=== PATIENT | female | born 1955 | race Caucasian/White ===

== ENCOUNTER → 2024-08-29 | Outpatient (CLI) | payer MEDICARE, BC, SELFPAY ==
--- NOTE | 2024-08-29 16:10 | BD_ITS ---
PROCEDURE: DEXA BONE DENSITY STUDY REASON FOR EXAM: Osteoporosis screening. Postmenopausal TECHNIQUE: DEXA scan of the lumbar spine and both hips. COMPARISON: None available. FINDINGS: Bone mineral density and T-scores: Lumbar spine: Bone mineral density 1.043 g per sq cm and T-score of 0.0. Left hip: Left femoral neck bone mineral density 0.650 and T-score of -1.8. Total left hip bone mineral density 0.943 g per sq cm and T-score of 0.0. Right hip: Right femoral neck bone mineral density 0.696 g per sq cm and T-score of -1.4. Total right hip bone mineral density 0.944 g per sq cm and T-score of 0.0. FRAX Score: Major osteoporotic score 9.2. Hip fracture score 1.2 The T-scores are also available for review on the [facility] PACS or by accessing the [facility] electronic medical record. BD/Dexa Bone Density Study IMPRESSION: Osteopenia. Reading Location: [place]
--- NOTE | 2024-08-29 16:30 | BI_ITS ---
EXAM: SCRN MAMM (CAD)W/KULWINDER BILAT 08/29/2024 CLINICAL HISTORY: F, Age 69 y/o , SCRN MAMM (CAD)W/KULWINDER BILAT. There is no family history of breast cancer. TECHNIQUE: Bilateral screening digital breast tomosynthesis with 2D and 3D images. Computer aided detection. COMPARISON: Baseline, no priors. FINDINGS: TISSUE DENSITY: The breast tissue is almost entirely fatty. Bilateral Breast Mammographic Findings: No significant masses, calcifications or other abnormalities are identified. BI/SCRN MAMM (CAD)W/KULWINDER BILAT IMPRESSION: There is no mammographic evidence of malignancy. OVERALL FINAL ASSESSMENT: BIRADS 1 NEGATIVE. RECOMMENDATION: Routine annual follow-up in 1 Year A letter with findings and recommendations will be mailed to the patient. Reading Location: [id number]
== END | disposition home or self-care (01) ==
PROVIDERS: PCP Internal Medicine; Referring Provider Internal Medicine; Visit Provider Internal Medicine
DX: Z12.31 Encounter for screening mammogram for malignant neoplasm of breast (principal); Z78.0 Asymptomatic menopausal state
CPT/HCPCS: 77063; 77067; 77080